=== PATIENT | male | born 1955 | race Caucasian/White ===

== ENCOUNTER 2024-02-29 07:39 | Emergency (ER) | payer MEDICARE, SELFPAY ==
[2024-02-29 07:46] VITALS: BP 119/82
[2024-02-29 08:07] LABS: % Basophils 0.8 % (0-2); % Eosinophils 4.5 % (0-6); % Immature Granulocytes 0.3 % (0-0.5); % Lymphocytes 15.2 % (20.5-51.1); % Monocytes 8.7 % (1.7-9.3); % Neutrophils 70.5 % (42.2-75.2); Absolute Basophils 0.1 10^3/uL (0-0.2); Absolute Eosinophils 0.4 10^3/uL (0-0.7); Absolute Lymphocytes 1.3 10^3/uL (1.2-3.4); Absolute Monocytes 0.8 10^3/uL (0.1-0.6); Absolute Neutrophils 6.1 10^3/uL (1.4-6.5); Hematocrit 35.7 % (39.0-52.0); Hemoglobin 11.8 g/dL (13.0-18.0); Mean Corp Hgb Conc. 33.1 g/dL (33.0-37.0); Mean Corpuscular Hgb 30.5 pg (27.0-31.0); Mean Corpuscular Volume 92.2 fL (80.0-94.0); Mean Platelet Volume 8.7 fL (7.4-10.4); Nucleated Red Blood Cells % 0 % (-); Platelet Count 266 10^3/uL (130-400); Red Blood Cell Count 3.87 10^6/uL (4.70-6.10); Red Cell Dist. Width 15.5 % (11.5-14.5); White Blood Cell Count 8.7 10^3/uL (4.8-10.8)
[2024-02-29 08:13] LABS: ALT (SGPT) 33 U/L (0-50); AST (SGOT) 34 U/L (17-59); Albumin 4.7 g/dl (3.5-5.0); Alkaline Phosphatase 73 U/L (38-126); Blood Urea Nitrogen 29 mg/dl (9-20); Calcium 9.5 mg/dl (8.4-10.2); Carbon Dioxide 25 mmol/L (22-30); Chloride 104 mmol/L (98-107); Glucose 107 mg/dl (70-99); Potassium 4.3 mmol/L (3.5-5.1); Sodium 142 mmol/L (135-145); Total Bilirubin 0.4 mg/dl (0.2-1.3); Total Protein 7.7 g/dl (6.3-8.2); eGFR > 60.00
--- NOTE | 2024-02-29 08:13 | ED.GENMED ---
History of Present Illness
General
Chief Complaint: Abnormal Lab Value
Source: patient
Exam Limitations: none
Time Seen by Provider: 02/29/24 08:09
Nursing documentation reviewed up to this point in time: agreed with
History of Present Illness
History of Present Illness:
68-year-old male past medical history of hypertension hyperlipidemia, diabetes presenting to the emergency department today with concerns of elevated BUN and creatinine on outpatient labs.
Past History
Past History
ED Past Medical History: GERD, HTN, Hypercholesterolemia, NIDDM and Other (Anemia)
ED Past Surgical History: Bowel resection, Orthopedic (Back surgery) and Other (Nasal surgery)
Social History
Tobacco: Non-smoker
Alcohol: None
Drug: None
Personal:
Living: with family
Employment: Retired (Retired physician)
Review of Systems
Review of Systems
Allergies reviewed?: Yes
All Other Systems: ROS reviewed and negative except as documented in HPI and ROS
Phy Exam
Physical Exam
Physical Exam:
GENERAL: Alert , in no apparent distress
EYE: pupils equal and reactive
NECK: Supple, no significant adenopathy.
ENT: o/p clr, mmm.
CARDIAC: Regular rate and rhythm .
LUNGS: Clear breath sounds bilaterally, no acute respiratory distress, no wheezes/rales/rhonchi
ABDOMEN: Soft, without focal tenderness, no r/g, no cvat
NEUROLOGICAL: Alert and oriented, no focal neuro deficits
SKIN: Warm and dry, skin intact.
MUSCULOSKELETAL: No edema, well perfused.
PSYCH: Normal and appropriate interaction.
Course
Orders/Labs/Results
Orders:
Orders
02/29/24 07:54
Complete Blood Count/With Diff Urgent
Comprehensive Metabolic Panel Urgent
Abnormal Lab Results
02/29/24
07:54
RBC 3.87 L 10^6/uL
(4.70-6.10)
Hgb 11.8 L g/dL
(13.0-18.0)
Hct 35.7 L %
(39.0-52.0)
RDW 15.5 H %
(11.5-14.5)
Absolute Monos (auto) 0.8 H 10^3/uL
(0.1-0.6)
Lymphocytes % 15.2 L %
(20.5-51.1)
BUN 29 H mg/dl
(9-20)
Glucose 107 H mg/dl
(70-99)
02/29/24 07:54
02/29/24 07:54
Vital Signs
Initial and Last Documented VS:
Initial Vital Signs
Temp Pulse Resp BP Pulse Ox
98.1 F 84 18 119/82 93
02/29/24 07:46 02/29/24 07:46 02/29/24 07:46 02/29/24 07:46 02/29/24 07:46
Last Documented Vital Signs
Temp Pulse Resp BP Pulse Ox
98.1 F 84 18 119/82 93
02/29/24 07:46 02/29/24 07:46 02/29/24 07:46 02/29/24 07:46 02/29/24 07:46
MDM/Problems Addressed
MDM/Problems Addressed:
68-year-old male presenting to the emergency department with concerns of elevated BUN and creatinine level as an outpatient resulting yesterday. Creatinine level 1.7 BUN of 40. Denies any specific symptoms has been urinating well and has been
tolerating by mouth. No diarrhea. Vital signs normal on arrival labs repeated here with creatinine level 1.1 in normal range. This point patient asymptomatic stable for discharge at this time return precautions given.
*Critical Care Note
Total Time (30-74mins, 75-104mins- exclusive of procedures): Not Applicable
ED Attending Note
-
Portions of this chart may have been created with voice recognition software.� Occasional wrong word or��sound alike� substitutions may have occurred due to the inherent limitations of voice recognition software.
Discharge Plan
Departure
Patient Disposition: Home (Routine Discharge)
Date of Disposition: 02/29/24
Time of Disposition: 08:22
Patient with high blood pressure during this ER visit?: No
Condition: Good
Covid-19: Not Applicable
Discharge Problem:
Abnormal laboratory test result
Prescriptions:
No Action
metformin 500 MG tablet
500 mg PO BID
gabapentin 600 MG tablet
900 mg PO QID
atorvastatin [Lipitor] 10 MG tablet
10 mg PO DAILY
clonidine HCl 0.3 MG tablet
0.3 mg PO BID
pantoprazole [Protonix] 20 MG tablet,delayed release (DR/EC)
40 mg PO BID
lisinopril 10 MG tablet
10 mg PO BID
diazepam [Valium] 10 MG tablet
10 mg PO BID
aripiprazole [Abilify] 2 MG tablet
2 mg PO DAILY
desvenlafaxine succinate [Pristiq] 100 MG tablet extended release 24 hr
100 mg PO DAILY
Activity Restrictions/Additional Instructions:
You came to the emergency department today with concerns of abnormal labs as an outpatient. Here your creatinine level was 1.1 which is in the normal range. Your BUN was elevated to 29. This could represent some degree of dehydration. Please
drink plenty of fluids. Otherwise your renal function in general is in the normal range. Please follow-up as an outpatient for ongoing monitoring of your kidney function. Return for any worsening, new or concerning symptoms.
Interventions
Interventions:
*Risk Screen - Suicide Last Done: 02/29/24 07:46
*General Assessment Last Done: 02/29/24 07:46
*Neglect/Abuse Screening Last Done: 02/29/24 07:46
*ED COVID-19 Vaccine History Last Done: 02/29/24 07:46
Discharge Date and Time
Print Language: [place]
== END 2024-02-29 08:39 | disposition home or self-care (01) ==
LOC: EMR 07:39
PROVIDERS: Emergency Medicine; EMERGENCY PHYSICIAN Emergency Medicine; FAMILY PHYSICIAN Internal Medicine
DX: R79.89 Other specified abnormal findings of blood chemistry (principal); I10 Essential (primary) hypertension; E78.00 Pure hypercholesterolemia, unspecified; E11.9 Type 2 diabetes mellitus without complications
CPT/HCPCS: 99283; 80053; 85025